=== PATIENT | male | born 2005 | race Two or more races ===

== ENCOUNTER 2024-12-21 18:53 | Emergency (ER) | payer OTHER ==
[~2024-12-21] VITALS: Ht 167.6 cm; Wt 81.6 kg
[2024-12-21 19:40] VITALS: BP 112/72
[2024-12-21] MEDS ORDERED: KETOROLAC TROMETHAMINE 30 MG INJ ONE (20:47)
[2024-12-21] MEDS: KETOROLAC TROMETHAMINE 30 MG INJ IM ONE (20:51)
[2024-12-21] MEDS ORDERED: NAPR-1009 PO (21:07)
[2024-12-21 22:07] VITALS: BP 112/72; O2SAT 100
== END 2024-12-21 21:30 | disposition home or self-care (01) ==
LOC: ER 19:04
DX: S83.8X2A Sprain of other specified parts of left knee, initial encounter (principal); W01.0XXA Fall on same level from slipping, tripping and stumbling without subsequent striking against object, initial encounter; Y93.89 Activity, other specified; Y92.89 Other specified places as the place of occurrence of the external cause; Y99.8 Other external cause status
CPT/HCPCS: 99284; 73564; 96372; J1885; A4606; A4663